=== PATIENT | male | born 1990 | race Native Hawaiian/Other Pacific Islander ===

== ENCOUNTER 2018-04-06 08:34 | Inpatient (IN) | payer OTHER ==
[2018-04-06] VITALS (14 sets, daily range): BP systolic 115–161; BP diastolic 51–91
[~2018-04-06] VITALS: Ht 188 cm; Wt 167.8 kg
--- NOTE | ~2018-04-06 | EKG ---
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 : 1990 Requested By: Max Rubio Order Number: [id number] MD: Isaiah Cabrera Measurements Intervals [place] Rate: 106 P: 60 HI: 160 QRS: 64 QRSD: 105 T: 21 QT: 339 QTc: 451 Interpretive Statements Sinus tachycardia ST elev, probable normal early repol pattern No previous ECG available for comparison Electronically Signed On 04-07-2018 8:26:06 CDT by Isaiah Cabrera [email or web address] <ELECTRONICALLY SIGNED> By: Isaiah Cabrera MD, [facility] 04/07/18 0826 00 00 Isaiah Cabrera MD, [facility] /EPI
--- NOTE | ~2018-04-06 | EKG ---
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
[2018-04-06 10:23] LABS: ABSOLUTE NEUTROPHILS 9.9 thou/uL (1.4-8.2); BASOPHILS 0.2 % (0.0-2.0); EOSINOPHILS 0.3 % (0.0-3.0); HEMATOCRIT 40.6 % (42.0-52.0); HEMOGLOBIN 12.8 gm/dL (14.0-18.0); LYMPHOCYTES 25.6 % (24.0-44.0); MCH 25.3 pg (26.0-34.0); MCHC 31.4 g/dL (28.0-37.0); MCV 80.4 fL (80.0-100.0); MONOCYTES 1.9 % (1.0-8.0); PLATELET COUNT 285 thou/uL (150-400); RBC 5.05 mil/uL (4.50-6.00); RDW 14.6 % (10.5-14.5); WBC 13.7 thou/uL (4.0-11.0)
[2018-04-06 10:40] LABS: POTASSIUM 4.6 mmol/L (3.5-5.1)
[2018-04-06 10:41] LABS: CALCIUM 9.6 mg/dL (8.5-10.1); CREATININE 1.1 mg/dL (0.7-1.3)
[2018-04-06 11:40] LABS: URINE BILIRUBIN NEGATIVE (Negative); URINE BLOOD NEGATIVE (Negative); URINE CLARITY CLEAR; URINE COLOR YELLOW; URINE GLUCOSE-RANDOM* NEGATIVE (Negative); URINE KETONES NEGATIVE (Negative); URINE LEUKOCYTES-REFLEX NEGATIVE (Negative); URINE NITRITE-REFLEX NEGATIVE (Negative); URINE PROTEIN (DIPSTICK) TRACE (Negative)
[2018-04-06] MEDS ORDERED: LIPITOR10 MG PO (15:26)
[2018-04-06] MEDS ORDERED: GLUCOPHAGE XR750 MG PO (15:26)
[2018-04-06] MEDS ORDERED: PRINIVIL20 M1 PO (15:27)
[2018-04-06] MEDS ORDERED: JARDIANCE25 MG PO (15:27)
[2018-04-06] MEDS ORDERED: BYDUREON P2 MG/0.65 SUBQ (15:28)
[2018-04-06 18:30] LABS: ALBUMIN 3.9 g/dL (3.4-5.0); DIRECT BILIRUBIN 0.2 mg/dL (<0.1-0.3); TOTAL BILIRUBIN 0.8 mg/dL (<0.1-1.0); TOTAL PROTEIN 7.6 g/dL (6.4-8.2)
[2018-04-07] VITALS (15 sets, daily range): BP systolic 105–144; BP diastolic 45–90
[2018-04-07 03:45] LABS: CALCIUM 8.9 mg/dL (8.5-10.1); POTASSIUM 3.9 mmol/L (3.5-5.1)
[2018-04-07 03:54] LABS: ABSOLUTE NEUTROPHILS 10.9 thou/uL (1.4-8.2); BASOPHILS 0.8 % (0.0-2.0); EOSINOPHILS 0.1 % (0.0-3.0); HEMATOCRIT 34.5 % (42.0-52.0); LYMPHOCYTES 9.7 % (24.0-44.0); MCH 25.5 pg (26.0-34.0); MCHC 31.9 g/dL (28.0-37.0); MCV 79.8 fL (80.0-100.0); MONOCYTES 2.9 % (1.0-8.0); PLATELET COUNT 222 thou/uL (150-400); POLYS 86.5 % (36.0-66.0); RBC 4.32 mil/uL (4.50-6.00); RDW 14.5 % (10.5-14.5); WBC 12.6 thou/uL (4.0-11.0)
[2018-04-07 15:08] LABS: HIV ANTIBODY Non Reactive (Non Reactive)
[2018-04-08 04:07] LABS: LYME ANTIBODY SCREEN* <0.91 ISR (0.00-0.90)
[2018-04-08 04:53] VITALS: BP 127/87
[2018-04-08] MEDS ORDERED: DOXYCYCLINE HYC50 MG PO (07:18)
[2018-04-08] MEDS ORDERED: IBUPROFEN 200200 M1 PO (07:19)
[2018-04-08 08:00] VITALS: BP 121/85
[2018-04-08 16:00] VITALS: BP 147/90
[2018-04-08 16:38] VITALS: BP 147/90
[2018-04-09 23:08] LABS: ADENOVIRUS Negative (Negative); INFLUENZA A Negative (Negative); INFLUENZA B Negative (Negative); METAPNEUMOVIRUS Negative (Negative); PARAINFLUENZA 1 Negative (Negative); PARAINFLUENZA 2 Negative (Negative); PARAINFLUENZA 3 Negative (Negative); RHINOVIRUS Negative (Negative); RSV A Negative (Negative); RSV B Negative (Negative)
[2018-04-12 15:11] LABS: PARVOVIRUS IGG 4.3 index (0.0-0.8); PARVOVIRUS IGM 0.2 index (0.0-0.8)
== END 2018-04-08 19:01 | disposition home or self-care (01) | DRG 872 ==
LOC: ER 08:34 → EROBS 12:45 → ICU 12:45 → 4W 04-07 12:52
PROVIDERS: Emergency Medicine; Specialist
PROC: 05HY33Z Insertion of Infusion Device into Upper Vein, Percutaneous Approach (ICD-10-PCS; principal; 2018-04-06)
DX: A41.9 Sepsis, unspecified organism (principal); Z68.42 Body mass index [BMI] 45.0-49.9, adult; N17.9 Acute kidney failure, unspecified; R65.20 Severe sepsis without septic shock; I10 Essential (primary) hypertension; R21 Rash and other nonspecific skin eruption; E11.65 Type 2 diabetes mellitus with hyperglycemia; I95.9 Hypotension, unspecified; E66.01 Morbid (severe) obesity due to excess calories; E86.0 Dehydration; M25.50 Pain in unspecified joint; Z88.2 Allergy status to sulfonamides; Z79.899 Other long term (current) drug therapy
CPT/HCPCS: 10045; 10203; 27000

== ENCOUNTER → 2018-04-09 | Outpatient (CLI) | payer OTHER ==
[~2018-04-09] MED LIST: BYDUREON P2 MG/0.65 SUBQ; DOXYCYCLINE HYC50 MG PO; GLUCOPHAGE XR750 MG PO; IBUPROFEN 200200 M1 PO; JARDIANCE25 MG PO; LIPITOR10 MG PO; PRINIVIL20 M1 PO
== END ==
LOC: RAD 12:02
DX: R50.9 Fever, unspecified (principal)

== ENCOUNTER → 2020-10-12 | Outpatient (CLI) | payer OTHER | LOC: LAB 11:27 | PROVIDERS: ATTEND Family Medicine | DX: U07.1 COVID-19 (principal) ==

== ENCOUNTER → 2021-12-04 | Outpatient (CLI) | payer OTHER ==
[2021-12-04 09:36] LABS: ABSOLUTE NEUTROPHILS 3.4 thou/uL (1.4-8.2); EOSINOPHILS 2.2 % (0.0-3.0); HEMATOCRIT 38.6 % (42.0-52.0); LYMPHOCYTES 42.5 % (24.0-44.0); MCH 25.6 pg (26.0-34.0); MCHC 31.1 g/dL (28.0-37.0); MCV 82.3 fL (80.0-100.0); MONOCYTES 6.9 % (1.0-8.0); PLATELET COUNT 241 thou/uL (150-400); POLYS 47.4 % (36.0-66.0); RBC 4.69 mil/uL (4.50-6.00); RDW 14.6 % (10.5-14.5); WBC 7.2 thou/uL (4.0-11.0)
[2021-12-04 10:17] LABS: ANION GAP 8 mmol/L (7-16); BUN 14 mg/dL (7-18); CALCIUM 9.3 mg/dL (8.5-10.1); CHLORIDE 99 mmol/L (98-107); CO2 29 mmol/L (21-32); CREATININE 0.9 mg/dL (0.7-1.3); GLUCOSE 270 mg/dL (74-106); POTASSIUM 3.9 mmol/L (3.5-5.1); SGOT 14 U/L (15-37); SGPT 28 U/L (16-63); SODIUM 136 mmol/L (136-145); TOTAL BILIRUBIN 0.4 mg/dL (0.2-1.0); TOTAL PROTEIN 8.1 g/dL (6.4-8.2)
[2021-12-04 10:29] LABS: CHOLESTEROL 173 mg/dL (<200); HDL CHOLESTEROL 46 mg/dL (>40); LDL CHOLESTEROL 111 mg/dL (<100); TC:HDL 3.8 Ratio (Not establshd); TRIGLYCERIDE 83 mg/dL (<150); VLDL 17 mg/dL (<40)
[2021-12-05 06:07] LABS: GLYCOHEMOGLOBIN (HGB A1C) 9.2 % (4.8-5.6)
== END ==
LOC: LAB 09:03
PROVIDERS: ATTEND Family Medicine
DX: I10 Essential (primary) hypertension (principal); E11.9 Type 2 diabetes mellitus without complications; Z79.4 Long term (current) use of insulin; R60.0 Localized edema